=== PATIENT | female | born 1950 | race African-American/Black ===

== ENCOUNTER 2017-07-11 12:13 | Emergency (ER) | payer OTHER ==
[2017-07-11 12:39] VITALS: BP 172/98
--- NOTE | 2017-07-11 14:23 | CT ---
Head CT Technique: Multiple axial sections through the brain were obtained. Intravenous contrast was not utilized. Comparison: No previous intracranial imaging. Findings: Ventricles along with basal cisterns and sulci over the convexities are within normal limits for the patient's age. No evidence of intracranial hemorrhage. No midline shift or mass effect is seen. 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 No other abnormal parenchymal densities are seen. Bone window settings were reviewed which appears within normal limits. Visualized sinuses are clear. Impression: 1. No acute intracranial abnormality is seen. Incidental finding as noted above. Diagnostic code #2
--- NOTE | 2017-07-11 14:47 | EDM.PDOC ---
ED HPI GENERAL MEDICAL PROBLEM - General Chief Complaint: Cardiovascular Problem Stated Complaint: HIGH BLOOD PRESSURE Time Seen by Provider: 07/11/17 12:36 Source of Information: Reports: Patient History Limitations: Reports: No Limitations - History of Present Illness INITIAL COMMENTS - FREE TEXT/NARRATIVE: The patient presents with elevated blood pressure. The patient has a history of hypertension and she is on losartan 50mg daily. She went to [facility] and she checked he blood pressure and it was high in the 180s. She has a headache but no numbness or weakness. She has some shortness of breath but no chest pain. She has some vision changes. She does wear glasses but that has gotten worse. She has a history of a slight stroke a few years ago. She has no neurologic deficits from it. Onset: Gradual Duration: Day(s): Location: Reports: Head Quality: Reports: Ache Severity: Mild Improves with: Reports: None Worsens with: Reports: None Context: Reports: Activity Associated Symptoms: Reports: Headaches, Shortness of Breath. Denies: Chest Pain, Cough, Fever/Chills, Nausea/Vomiting - Related Data Allergies Allergy/AdvReac Type Severity Reaction Status Date / Time No Known Allergies Allergy Verified 07/11/17 12:39 Home Meds: Home Meds Losartan [Cozaar] 50 mg PO DAILY 07/11/17 [History] amLODIPine [Norvasc] 2.5 mg PO DAILY #30 tablet 07/11/17 [Rx] Past Medical History HEENT History: Reports: Impaired Vision Cardiovascular History: Reports: Hypertension - Past Surgical History Female Surgical History: Reports: Hysterectomy Social & Family History - Family History Family Medical History: Noncontributory - Tobacco Use Smoking Status *Q: Never Smoker Second Hand Smoke Exposure: No - Caffeine Use Caffeine Use: Reports: Tea - Recreational Drug Use Recreational Drug Use: No ED ROS GENERAL - Review of Systems Review Of Systems: See Below Constitutional: Reports: No Symptoms HEENT: Reports: No Symptoms Respiratory: Reports: Shortness of Breath Cardiovascular: Reports: No Symptoms Endocrine: Reports: No Symptoms GI/Abdominal: Reports: No Symptoms : Reports: No Symptoms Musculoskeletal: Reports: No Symptoms Skin: Reports: No Symptoms ED EXAM, GENERAL - Physical Exam Exam: See Below Exam Limited By: No Limitations General Appearance: Alert, No Apparent Distress Ears: Normal External Exam Nose: Normal Inspection Head: Atraumatic, Normocephalic Neck: Normal Inspection Respiratory/Chest: No Respiratory Distress, Lungs Clear, Normal Breath Sounds Cardiovascular: Regular Rate, Rhythm, No Edema, No Murmur GI/Abdominal: Normal Bowel Sounds, Soft, Non-Tender, No Organomegaly, No Mass Back Exam: Normal Inspection Extremities: Normal Inspection Neurological: Alert, Oriented, No Motor/Sensory Deficits EKG INTERPRETATION EKG Date: 07/11/17 Time: 13:30 Rhythm: Other (Sinus bradycardia) Rate (Beats/Min): 50 [place]: LAD-Left [place] Deviation P-Wave: Present QRS: Normal ST-T: Normal QT: Normal Course - Vital Signs Last Recorded V/S: Last Vital Signs Temp 96.6 F 07/11/17 12:35 Pulse 66 07/11/17 12:35 Resp 18 07/11/17 12:35 BP 172/98 H 07/11/17 12:35 Pulse Ox 97 07/11/17 12:35 - Orders/Labs/Meds Orders: Active Orders 24 hr Category Date Time Status Cardiac Monitoring [RC] . DIRECTED Care 07/11/17 13:00 Active EKG Documentation Completion [RC] STAT Care 07/11/17 13:00 Active Chest 1V Frontal [CR] Stat Exams 07/11/17 13:00 Taken Labs: Laboratory Tests 07/11/17 07/11/17 Range/Units 13:25 13:25 WBC 4.95 (3.98-10.04) K/mm3 RBC 4.72 (3.98-5.22) M/mm3 Hgb 13.3 (11.2-15.7) gm/L Hct 41.6 (34.1-44.9) % MCV 88.1 (79.4-94.8) fl MCH 28.2 (25.6-32.2) pg MCHC 32.0 L (32.2-35.5) g/dl RDW Std Deviation 45.3 (36.4-46.3) fL Plt Count 168 L (182-369) K/mm3 MPV 11.3 (9.4-12.3) fl Neut % (Auto) 43.0 (34.0-71.1) % Lymph % (Auto) 42.2 (19.3-51.7) % [place] % (Auto) 8.9 (4.7-12.5) % Eos % (Auto) 5.1 (0.7-5.8) Baso % (Auto) 0.6 (0.1-1.2) % Neut # (Auto) 2.13 (1.56-6.13) K/mm3 Lymph # (Auto) 2.09 (1.18-3.74) K/mm3 [place] # (Auto) 0.44 H (0.24-0.36) K/mm3 Eos # (Auto) 0.25 (0.04-0.36) K/mm3 Baso # (Auto) 0.03 (0.01-0.08) K/mm3 Sodium 140 (136-145) mEq/L Potassium 4.4 (3.5-5.1) mEq/L Chloride 106 (98-107) mEq/L Carbon Dioxide 25 (21-32) mEq/L Anion Gap 13.4 (5-15) BUN 25 H (7-18) mg/dL Creatinine 1.8 H (0.55-1.02) mg/dL Est Cr Clr Drug Dosing 23.09 mL/min Estimated GFR (MDRD) 34 (>60) mL/min BUN/Creatinine Ratio 13.9 L (14-18) Glucose 113 (80-115) mg/dL Calcium 9.9 (8.5-10.1) mg/dL Total Bilirubin 0.4 (0.2-1.0) mg/dL AST 22 (15-37) U/L ALT 23 (14-59) U/L Alkaline Phosphatase 106 (46-116) U/L Troponin I < 0.017 (0.00-0.056) ng/mL Total Protein 8.0 (6.4-8.2) g/dl Albumin 3.8 (3.4-5.0) g/dl Globulin 4.2 gm/dL Albumin/Globulin Ratio 0.9 L (1-2) - Re-Assessments/Exams Free Text/Narrative Re-Assessment/Exam: 07/11/17 14:48 Her EKG shows a sinus bradycardia with no acute changes. Her head CT looks good. Her CBC looks good. Her troponin is negative. Her creatinine is elevated at 1.8. She says in the past she was told her kidneys were not working so good. She also said she has some blurred vision that has gotten worse. I will have her follow up with an contract driver in [facility] and I called Kimmie Hernandez and she can see her Saturday. I will switch her to amlodipein 2.5mg. Departure - Departure Time of Disposition: 14:50 Disposition: Home, Self-Care 01 Condition: Good Clinical Impression: Renal insufficiency Hypertension Qualifiers: Hypertension type: essential hypertension Qualified Code(s): I10 - Essential ( primary) hypertension Prescriptions: amLODIPine [Norvasc] 2.5 mg PO DAILY #30 tablet Referrals: PCP,None [Primary Care Provider] - Kimmie Hernandez PA [Physician Regulation Supervisor] - (Saturday at 11am. Please come early to register.) Additional Instructions: Stop taking the losartan and start taking the amlodipine 2.5mg daily. Follow up with Kimmie Hernandez on Saturday at 11am. Please come early to register. Follow up with an contract driver in [facility] to have your vision checked. An option is Dr Lizarraga at the vision center at [facility]. Their number is . Please return if you are worse. - My Orders Last 24 Hours: My Active Orders 07/11/17 13:00 Cardiac Monitoring [RC] . DIRECTED EKG Documentation Completion [RC] STAT Chest 1V Frontal [CR] Stat - Assessment/Plan Last 24 Hours: My Active Orders 07/11/17 13:00 Cardiac Monitoring [RC] . DIRECTED EKG Documentation Completion [RC] STAT Chest 1V Frontal [CR] Stat
--- NOTE | 2017-07-15 14:19 | CR ---
Chest: Portable view of the chest was obtained. Comparison: No prior study. Heart size is within normal limits for portable technique. Tortuous thoracic aorta is seen. Lungs are clear. Bony structures are grossly intact. Impression: 1. Nothing acute is identified. Diagnostic code #2
== END 2017-07-11 15:08 | disposition home or self-care (01) ==
LOC: JD.ED 12:13
DX: I10 Essential (primary) hypertension (principal); N28.9 Disorder of kidney and ureter, unspecified; Z79.899 Other long term (current) drug therapy; Z90.710 Acquired absence of both cervix and uterus
CPT/HCPCS: 36415; 70450; 70450-26; 71010; 71010-26; 80053; 84484; 85025; 93005; 99284; 99284-25